=== PATIENT | male | born 1970 | race Caucasian/White ===

== ENCOUNTER 2018-10-23 11:52 | Day surgery (SDC) | payer OTHER ==
[2018-10-23] MEDS ORDERED: FENTAnyl 50 MCG/ML VIAL (12:49)
[2018-10-23] MEDS ORDERED: PROPOFOL 40 ML (12:49)
[2018-10-23] MEDS ORDERED: LIDOCAINE 100 MG SYRINGE (12:49)
== END 2018-10-23 13:54 | disposition home or self-care (01) ==
LOC: GIL 11:52
DX: K29.50 Unspecified chronic gastritis without bleeding (principal); B96.89 Other specified bacterial agents as the cause of diseases classified elsewhere; K21.9 Gastro-esophageal reflux disease without esophagitis; I10 Essential (primary) hypertension; E11.9 Type 2 diabetes mellitus without complications; E66.9 Obesity, unspecified; Z68.33 Body mass index [BMI] 33.0-33.9, adult
CPT/HCPCS: 43239; 82962; 88305; 88312